=== PATIENT | male | born 1950 ===

== ENCOUNTER 2017-04-03 09:35 | Day surgery (SDC) | payer MEDICARE ==
[2017-04-03] MEDS ORDERED: Lactated Ringer's 500 ML IV ONE (10:58)
[2017-04-03] MEDS ORDERED: Propofol 10 mg/ml Inj (20 ML) ONE (11:30)
[2017-04-03 12:09] VITALS: BP 92/61; PULSE 62; RESP 17; TEMP 96.8; O2SAT 100
== END 2017-04-03 13:22 | disposition home or self-care (01) ==
LOC: H.ENDO 09:35
PROVIDERS: ATTEND Internal Medicine Gastroenterology
DX: Z12.11 Encounter for screening for malignant neoplasm of colon (principal); K57.30 Diverticulosis of large intestine without perforation or abscess without bleeding; K64.8 Other hemorrhoids
CPT/HCPCS: 45378; J2001; J2704; J7120